=== PATIENT | female | born 1985 | race African-American/Black ===

== ENCOUNTER 2024-04-08 20:48 | Emergency (ER) | payer MEDICAID ==
[~2024-04-08] VITALS: Ht 162.6 cm; Wt 97.0 kg
[~2024-04-08 20:48] MED LIST: ALBUTEROL
[2024-04-08 21:10] VITALS: O2SAT 98
[2024-04-08 22:41] LABS: CLARITY URINE TURBID (CLEAR); COLOR URINE DARK YELLOW (YELLOW); GLUCOSE URINE NEGATIVE (NEGATIVE); KETONES URINE TRACE (NEGATIVE); LEUKOCYTE ESTERASE URINE 2+ (NEGATIVE); NITRITE URINE NEGATIVE (NEGATIVE); OCCULT BLOOD URINE NEGATIVE (NEGATIVE); PH URINE 5.5 (4.5-8.0); PROTEIN URINE 1+ (NEGATIVE); SPECIFIC GRAVITY URINE 1.032 (1.005-1.030)
[2024-04-08] MEDS ORDERED: AZITHROMYCIN 500 MG TABLET PO ONE (23:00)
[2024-04-08 23:23] LABS: BACTERIA URINE 4+; RBC URINE 0-2 /hpf (0-2); SQUAMOUS EPITHELIAL CELL URINE 3+ /lpf (RARE/1+)
[2024-04-08 23:24] LABS: WBC URINE 50-100 /hpf (0-2)
[2024-04-08 23:39] LABS: HCG SCREEN NEGATIVE
[2024-04-08] MEDS: ONDANSETRON HCL 4MG TABLET PO ONE (23:49)
[2024-04-09] MEDS: AZITHROMYCIN 500 MG TABLET PO NR (00:20)
[2024-04-09] MEDS ORDERED: CLIN-194 MT (00:43)
[2024-04-09 01:35] VITALS: BP 131/68; PULSE 70; RESP 18; TEMP 98.2
[2024-04-09] MEDS ORDERED: NITR100C MT (01:46)
[2024-04-12 04:08] LABS: CHLAMYDIA TRACHOMATIS NAA Negative (Negative); NEISSERIA GONORRHOEAE NAA Negative (Negative)
== END 2024-04-09 01:37 | disposition home or self-care (01) ==
LOC: ER 20:48
DX: N39.0 Urinary tract infection, site not specified (principal); J45.909 Unspecified asthma, uncomplicated; Z20.2 Contact with and (suspected) exposure to infections with a predominantly sexual mode of transmission; Z98.890 Other specified postprocedural states; Z88.0 Allergy status to penicillin; Z88.5 Allergy status to narcotic agent; Z88.6 Allergy status to analgesic agent
CPT/HCPCS: 99283; 87491; 87591; 81003; 81025; 84703; 87086; 87077; Q0162

== ENCOUNTER 2024-08-29 08:29 | Emergency (ER) | payer MEDICAID ==
[~2024-08-29] VITALS: Ht 165.1 cm; Wt 68.0 kg
[~2024-08-29 08:29] MED LIST changes: +CLIN-194 MT; +NITR100C MT
[2024-08-29 08:33] VITALS: O2SAT 98
[2024-08-29] MEDS: ONDANSETRON 4MG ODT PO ONE (09:51)
[2024-08-29] MEDS: KETOROLAC 30MG/ML VIAL IM STA (09:53)
[2024-08-29] MEDS ORDERED: ACETAMINOPHEN 325MG TABLET PO ONE (11:00)
[2024-08-29] MEDS ORDERED: TOPUD MT (11:17)
[2024-08-29] MEDS ORDERED: IBUP-2029 MT (11:17)
[2024-08-29] MEDS ORDERED: HYDR10TA34 MT (11:18)
[2024-08-29 11:40] VITALS: BP 104/62; PULSE 87; RESP 20; TEMP 36.72516; O2SAT 100
== END 2024-08-29 11:46 | disposition home or self-care (01) ==
LOC: ER 08:32
DX: J06.9 Acute upper respiratory infection, unspecified (principal); B97.89 Other viral agents as the cause of diseases classified elsewhere; J45.909 Unspecified asthma, uncomplicated; Z88.0 Allergy status to penicillin; Z88.1 Allergy status to other antibiotic agents; Z88.5 Allergy status to narcotic agent; Z98.890 Other specified postprocedural states; Z79.899 Other long term (current) drug therapy; Z20.822 Contact with and (suspected) exposure to COVID-19
CPT/HCPCS: 81025; 87804 ×2; 71046; 96372; 99284; 87426; Q0162; J1885; Z7610

== ENCOUNTER 2025-05-06 09:37 | Emergency (ER) | payer MEDICAID ==
[~2025-05-06] VITALS: Ht 167.6 cm; Wt 91.0 kg
[~2025-05-06 09:37] MED LIST changes: +HYDR10TA34 MT; +IBUP-2029 MT; +TOPUD MT
[2025-05-06] MEDS: ACETAMINOPHEN 1000MG/100ML 100 ML IV ONE ×2 (10:00→13:14)
[2025-05-06] MEDS ORDERED: ALBUTEROL (0.083%) 2.5MG/3ML NEB HHN SCH (10:00)
[2025-05-06] MEDS ORDERED: IPRATROPIUM BROMIDE (0.02%) 0.5MG/2.5ML NEB HHN SCH (10:00)
[2025-05-06 10:12] LABS: BASOPHILS % 0.5 % (0.0-2.0); EOSINOPHILS % 4.4 % (0.0-5.0); HEMATOCRIT. 31.4 % (36.0-48.0); HEMOGLOBIN. 10.3 g/dL (12.0-16.0); LYMPHOCYTES % 34.8 % (20.0-50.0); MEAN PLATELET VOLUME 7.3 fl (7.4-10.4); MONOCYTES % 6.3 % (2.0-8.0); NEUTROPHILS % 54.0 % (40.0-76.0); PLATELET 253 x1000/uL (130-400); RED BLOOD CELL COUNT 3.49 mill/uL (4.2-5.4); RED CELL DISTRIBUTION WIDTH 14.3 % (11.6-14.6)
[2025-05-06 10:38] LABS: CREATININE 0.9 mg/dL (0.6-1.0); UREA NITROGEN BLOOD 8 mg/dL (9-23)
[2025-05-06 10:49] LABS: HCG SCREEN NEGATIVE
[2025-05-06 11:10] LABS: B-HCG QUANTITATIVE < 1 mIU/mL (<6)
[2025-05-06 12:41] VITALS: PULSE 79; RESP 16; O2SAT 95
[2025-05-06] MEDS: IPRATROPIUM BROMIDE (0.02%) 0.5MG/2.5ML NEB HHN SCH (12:41)
[2025-05-06] MEDS: ALBUTEROL (0.083%) 2.5MG/3ML NEB HHN SCH (12:41)
[2025-05-06] MEDS ORDERED: TOPUD PO (12:56)
[2025-05-06] MEDS ORDERED: ALBU90AE INH (12:56)
[2025-05-06 13:01] VITALS: PULSE 82; RESP 16; O2SAT 99
[2025-05-06 13:11] LABS: CLARITY URINE CLEAR (CLEAR); COLOR URINE YELLOW (YELLOW); GLUCOSE URINE NEGATIVE (NEGATIVE); KETONES URINE NEGATIVE (NEGATIVE); LEUKOCYTE ESTERASE URINE NEGATIVE (NEGATIVE); NITRITE URINE NEGATIVE (NEGATIVE); OCCULT BLOOD URINE NEGATIVE (NEGATIVE); PH URINE 6.5 (4.5-8.0); PROTEIN URINE NEGATIVE (NEGATIVE); SPECIFIC GRAVITY URINE 1.006 (1.005-1.030); UROBILINOGEN URINE 0.2 E.U./dL (0.2-1.0)
[2025-05-06 13:55] VITALS: BP 101/59; PULSE 80; RESP 14; TEMP 36.8; O2SAT 100
== END 2025-05-06 14:09 | disposition home or self-care (01) ==
LOC: ER 09:58 → CANBEDREQ 13:44 → ER 14:09
DX: J06.9 Acute upper respiratory infection, unspecified (principal); R06.02 Shortness of breath; B97.89 Other viral agents as the cause of diseases classified elsewhere; N89.8 Other specified noninflammatory disorders of vagina; Z79.899 Other long term (current) drug therapy; Z20.822 Contact with and (suspected) exposure to COVID-19; Z88.5 Allergy status to narcotic agent; Z88.0 Allergy status to penicillin; Z88.1 Allergy status to other antibiotic agents
CPT/HCPCS: 80048; 81003; 81025; 84703; 84702; 85025; 86850; 86900; 86901; 36415; 71045; 76830; 76856; 94640; 93005; 98960; 96365; 99285; 87426; Z7610 ×5; 94070; 94664; J0131